=== PATIENT | female | born 1995 | race Caucasian/White ===

== ENCOUNTER 2016-06-06 20:49 | Emergency (ER) | payer BC ==
[2016-06-06 21:13] VITALS: BP 128/67; PULSE 90; RESP 18; TEMP 98.9
--- NOTE | 2016-06-06 21:47 | ED ---
General Adult HPI - General Chief complaint: Extremity Injury, Lower Stated complaint: Ankle Pain Time Seen by Provider: 06/06/16 21:30 Source: patient, RN notes reviewed Mode of arrival: wheelchair Limitations: no limitations - History of Present Illness Initial comments: This is a 20-year-old female presents with right ankle and right foot pain after rolling her ankle today. Patient states this happened around 1:30 PM. Patient states the ankle everted while she was walking. Patient has been walking on it all day but complains that the pain is getting worse. Patient denies any numbness/weakness or tingling. Patient has noticed some mild swelling to the lateral aspect of the right foot. Patient denies any chance of being . Patient denies any recent fever, chills, shortness breath, chest pain, abdominal pain, nausea/vomiting/diarrhea, back pain, hematuria, headache, or visual changes, or any other complaints. - Related Data Home Medications Medication Instructions Recorded Confirmed No Known Home Medications [No 06/06/16 06/06/16 Known Home Medications] Allergies Allergy/AdvReac Type Severity Reaction Status Date / Time No Known Allergies Allergy Verified 06/06/16 21:34 Review of Systems ROS Statement: Those systems with pertinent positive or pertinent negative responses have been documented in the HPI. ROS Other: All systems not noted in ROS Statement are negative. Past Medical History Past Medical History: No Reported History Additional Past Medical History / Comment(s): hypoglycemic History of Any Multi-Drug Resistant Organisms: None Reported Past Surgical History: No Surgical Hx Reported Past Anesthesia/Blood Transfusion Reactions: No Reported Reaction Past Psychological History: No Psychological Hx Reported Smoking Status: Never smoker Past Alcohol Use History: None Reported Past Drug Use History: None Reported - Past Family History Brother(s) Family Medical History: Diabetes Mellitus General Exam - General Exam Comments Initial Comments: General: The patient is awake and alert, in no distress, and does not appear acutely ill. Neck: The neck is supple, there is no tenderness or JVD. Cardiovascular: There is a regular rate and rhythm. No murmur, rub or gallop is appreciated. Respiratory: Lungs are clear to auscultation, respirations are non-labored, breath sounds are equal. No wheezes, stridor, rales, or rhonchi. Musculoskeletal: There is tenderness to palpation over the lateral malleolus and to the lateral aspect of the right foot. There is no tenderness to palpation over the medial malleolus. There is mild swelling to the lateral aspect of the right foot but no ecchymosis or erythema. Full range of motion, strength 5/5 and Sensation intact. Posterior tibial pulses 2+ bilaterally. Capillary refill is normal at less than 2 seconds. Neurological: A&O x 3. CN II-XII intact, There are no obvious motor or sensory deficits. Coordination appears grossly intact. Speech is normal. Skin: Skin is warm and dry and no rashes or lesions are noted. Psychiatric: Normal mood and affect. Limitations: no limitations Course Vital Signs 06/06/16 21:09 Temperature 98.9 F Pulse Rate 90 Respiratory 18 Rate Blood Pressure 128/67 O2 Sat by Pulse 99 Oximetry Medical Decision Making - Medical Decision Making This is a 20-year-old female presents with right-sided ankle and foot pain. On physical exam There is tenderness to palpation over the lateral malleolus and to the lateral aspect of the right foot. There is no tenderness to palpation over the medial malleolus. There is mild swelling to the lateral aspect of the right foot but no ecchymosis or erythema. Full range of motion, strength 5/5 and Sensation intact. Posterior tibial pulses 2+ bilaterally. Capillary refill is normal at less than 2 seconds. X-rays of the right foot and right ankle were done and reviewed showing: X-ray right foot: There is no acute fracture or dislocation. X-ray right ankle: There is no acute fracture or dislocation seen. Soft tissue swelling and effusion. If clinical symptoms persist a follow-up in 1 week's time would be beneficial. Read by Dr. Vazquez. I discussed results with patient. Discussed the patient will receive a prescription for an Aircast and crutches in the [facility] today. I discussed rest, ice, elevate and use Harpreet wrap for compression. Discussed weightbearing as tolerated. Discussed range of motion exercises with the right ankle. Discussed If symptoms do not improve in the next 7 days repeat x-rays may be needed to rule out occult fracture. Discussed return parameters. Discussed [id number] Tylenol or Motrin as seen for any pain. Discussed that patient should follow up with PCP in one to 2 days or return to the [facility] for any worsening symptoms or for any further concerns. Patient was receptive to this plan and patient will be discharged home. Disposition Clinical Impression: Right ankle sprain Disposition: HOME SELF-CARE Condition: Good Instructions: Ankle Sprain (ED) Additional Instructions: Distress, ice, elevate and use Harpreet wrap for compression. Please use Aircast for support while up and walking. If symptoms do not improve in the next 7 days repeat x-rays may be needed to rule out occult fracture. Please use over-the- counter Tylenol or Motrin as needed for any pain. Please follow-up with family doctor in the next 2 days of symptoms have not improved. Please return to emergency room if the symptoms increase or worsen or for any other concerns. Referrals: Dayne Mora DO [Primary Care Provider] - 1-2 days Time of Disposition: 22:27
--- NOTE | 2016-06-06 22:05 | XR ---
EXAMINATION TYPE: XR foot complete RT DATE OF EXAM: 06/06/2016 9:51 PM CLINICAL HISTORY: pain generalized right foot and ankle pain after twisting injury. TECHNIQUE: Frontal, lateral and oblique images of the right foot are obtained. COMPARISON: None. FINDINGS: There is no acute fracture/dislocation evident. The joint spaces appear within normal schaeffer its. The overlying soft tissue appears unremarkable. IMPRESSION: There is no acute fracture or dislocation. ICD 10 NO FRACTURE, INITIAL EVALUATION
--- NOTE | 2016-06-06 22:08 | XR ---
EXAMINATION TYPE: XR ankle complete RT DATE OF EXAM: 06/06/2016 9:51 PM COMPARISON: NONE HISTORY: Pain generalized right foot and right ankle pain after twisting injury. TECHNIQUE: Frontal, lateral and oblique images of the right ankle are obtained. COMPARISON: None. FINDINGS: Small linear lucency in the distal metaphysis of right fibula in the medial aspect in the AP view is most likely positioning artifact. There is no acute fracture/dislocation evident. The joint spaces appear within normal limits. Mild s oft tissue swelling is noted around the right ankle. Minor effusion is suggested. IMPRESSION: There is no acute fracture or dislocation seen. Soft tissue swelling and effusion. If clinical symptoms persist a follow-up in one week's time would be beneficial.
== END 2016-06-06 22:32 | disposition home or self-care (01) ==
LOC: EC 20:49
DX: S93.401A Sprain of unspecified ligament of right ankle, initial encounter (principal); X50.1XXA Overexertion from prolonged static or awkward postures, initial encounter
CPT/HCPCS: 99284

== ENCOUNTER 2017-06-29 20:07 | Emergency (ER) | payer BC ==
[2017-06-29 20:16] VITALS: RESP 18
[2017-06-29] MEDS ORDERED: ACETAMINOPHEN TAB 325 MG TAB PO STA (20:27)
[2017-06-29 20:51] LABS: Appearance,Urine Clear (Clear); Bilirubin,Urine Negative (Negative); Blood,Urine Negative (Negative); Color,Urine Yellow; Glucose,Urine (UA) Negative (Negative); Ketones,Urine Negative (Negative); Leukocyte Esterase,Urine Negative (Negative); Nitrite,Urine Negative (Negative); Protein,Urine Negative (Negative); Specific Gravity,Urine 1.014 (1.001-1.035); Urobilinogen,Urine <2.0 mg/dL (<2.0)
--- NOTE | 2017-06-29 20:57 | ED ---
Chest Pain HPI - General Chief Complaint: Chest Pain Stated Complaint: chest pressure/abdominal pain Time Seen by Provider: 06/29/17 20:19 Source: patient Mode of arrival: ambulatory Limitations: no limitations - History of Present Illness Initial Comments: Patient presents with mild "pressure" in her chest that occurs intermittently over the past 1 month. States symptoms occur when she was arguing with the father of her daughter. States symptoms resolved by taking a warm bath. Patient states she thinks they're related to anxiety. Patient denies any cardiac history. Denies any family history of early cardiac disease. Denies high blood pressure, high cholesterol, tobacco use, history of blood clots, diabetes. Patient also notes she's had mild right-sided lower abdominal cramping for the past one hour, states it feels like menstrual cramps. Patient denies vaginal bleeding or discharge. Last menstrual period 20 days ago. Patient denies urinary symptoms. Patient denies diarrhea or constipation, nausea, vomiting, fevers, chills, changes in appetite. MD Complaint: chest pain - Related Data Home Medications Medication Instructions Recorded Confirmed Clindamycin HCl [Cleocin] 150 mg PO TID 06/29/17 06/29/17 Fluticasone Nasal [place] [Flonase 1 spray EA NOSTRIL DAILY 06/29/17 06/29/17 Nasal [place]] Allergies Allergy/AdvReac Type Severity Reaction Status Date / Time No Known Allergies Allergy Verified 06/29/17 20:23 Review of Systems ROS Statement: Those systems with pertinent positive or pertinent negative responses have been documented in the HPI. ROS Other: All systems not noted in ROS Statement are negative. Constitutional: Denies: fever, chills, weakness Eyes: Denies: vision change ENT: Denies: ear pain, throat pain Respiratory: Denies: cough, dyspnea Cardiovascular: Reports: chest pain. Denies: palpitations, dyspnea on exertion , syncope Endocrine: Denies: fatigue Gastrointestinal: Reports: abdominal pain. Denies: nausea, vomiting, diarrhea, constipation, hematemesis, melena, hematochezia Genitourinary: Denies: urgency, dysuria, frequency, hematuria, discharge, abnormal menses Musculoskeletal: Denies: back pain, joint swelling Skin: Denies: rash, lesions, change in color Neurological: Denies: headache Psychiatric: Reports: anxiety Past Medical History Past Medical History: No Reported History Additional Past Medical History / Comment(s): hypoglycemic, History of Any Multi-Drug Resistant Organisms: None Reported Past Surgical History: No Surgical Hx Reported Additional Past Surgical History / Comment(s): LEAP procedure 2015 Past Anesthesia/Blood Transfusion Reactions: No Reported Reaction Past Psychological History: Anxiety, Depression Smoking Status: Never smoker Past Alcohol Use History: Daily Past Drug Use History: None Reported - Past Family History Brother(s) Family Medical History: Diabetes Mellitus General Exam - General Exam Comments Initial Comments: Patient sitting in bed. No acute distress. Conversing normally. Calm, pleasant. Smiling. Well appearing. Limitations: no limitations General appearance: alert, in no apparent distress Head exam: Present: atraumatic, normocephalic Eye exam: Present: normal appearance, PERRL, EOMI ENT exam: Present: normal exam, mucous membranes moist Neck exam: Present: normal inspection, full ROM. Absent: tenderness, meningismus Respiratory exam: Present: normal lung sounds bilaterally. Absent: respiratory distress, wheezes, rales, rhonchi, stridor, chest wall tenderness, accessory muscle use Cardiovascular Exam: Present: regular rate, normal rhythm GI/Abdominal exam: Present: soft, normal bowel sounds, other (Abdomen soft nontender.). Absent: distended, tenderness, guarding, rebound, rigid, hernia Extremities exam: Present: normal inspection Neurological exam: Present: alert, oriented X3 Psychiatric exam: Present: normal affect, normal mood Skin exam: Present: warm, dry, intact, normal color. Absent: rash Course Vital Signs 06/29/17 06/29/17 20:11 20:33 Temperature 98.6 F Pulse Rate 94 Pulse Rate [ 75 Pulse Oximetery ] Respiratory 18 Rate Blood Pressure 133/77 O2 Sat by Pulse 99 Oximetry Chest Pain [facility] EKG normal sinus rhythm, heart rate 86, no ST or T-wave changes appreciated. Patient states symptoms almost completely resolved spontaneously at time of initial evaluation. Discuss workup of her abdominal pain has been ongoing for 1 hour, very mild. Patient agrees UA and test. Agrees with no imaging or blood work at this time. Tylenol given for pain. Frenzy test negative, UA negative for infection. Chest x-ray normal. Patient reevaluated, sitting up in bed smiling. I [place]. States all symptoms resolved at this time. Texting on her phone. Well-appearing. Patient agrees to follow primary care physician one to 2 days. Return to ER for new or worsening symptoms. Patient is very happy with plan of care. [place] comfortable going home at this time. All questions answered - Wells Criteria Clinical Symptoms of DVT: (0) No No Alternative Diagnosis: (0) No Immobilization of Surgery in Previous 4 Weeks: (0) No Previous DVT/PE: (0) No Hemoptysis: (0) No Malignancy: (0) No - PERC Rule Heart Rate < 100: (0) No g: (0) No No Prior History pf DVT/PE: (0) No No Recent Trauma or Surgery: (0) No Hemoptysis: (0) No No Exogenous Estrogen: (0) No No Clinical Signs Suggesting DVT: (0) No - ANT Score Age > 65: (0) No 3 or more CAD Risk Factors: (0) No Known CAD with more than 50% Stenosis: (0) No Aspirin use within the Past 7 Days: (0) No Elevated Cardiac Markers: (0) No ST Deviation Greater than 0.5mm: (0) No Disposition Clinical Impression: Chest pain, Pelvic pain Disposition: HOME SELF-CARE Condition: Good Instructions: Chest Pain (ED), Abdominal Pain (ED) Additional Instructions: Follow-up they're primary care physician in 2 days for reevaluation. Return to ER for new or worsening symptoms. Referrals: Dayne Mora DO [Primary Care Provider] - 1-2 days
--- NOTE | 2017-06-29 21:14 | XR ---
EXAMINATION TYPE: XR chest 2V DATE OF EXAM: 06/29/2017 COMPARISON: 05/31/2006 INDICATION: Pain intermittent chest pressure TECHNIQUE: Frontal and lateral views of the chest are obtained. FINDINGS: The heart size is normal. The pulmonary vasculature is normal. The lungs are clear. IMPRESSION: 1. No acute pulmonary process.
[2017-06-29 21:29] VITALS: BP 122/73; PULSE 88; TEMP 98.4
== END 2017-06-29 21:30 | disposition home or self-care (01) ==
LOC: EC 20:07
DX: R07.9 Chest pain, unspecified (principal); R10.2 Pelvic and perineal pain; Z79.51 Long term (current) use of inhaled steroids
CPT/HCPCS: 71046; 81003; 81025; 93005; 99285

== ENCOUNTER 2017-08-24 16:47 | Inpatient (IN) | payer BC ==
[2017-08-24 17:14] LABS: Appearance,Urine Cloudy (Clear); Bilirubin,Urine 1+ (Negative); Blood,Urine Trace (Negative); Color,Urine Yellow; Glucose,Urine (UA) Negative (Negative); Hyaline Casts,Urine 1 /lpf (0-2); Ketones,Urine 4+ (Negative); Leukocyte Esterase,Urine Negative (Negative); Mucus,Urine Many /hpf; Nitrite,Urine Negative (Negative); PH, Urine 5.5 (5.0-8.0); Protein,Urine Trace (Negative); RBC,Urine 2 /hpf (0-5); Specific Gravity,Urine 1.022 (1.001-1.035); Squamous Epithelial Cell,Urine 7 /hpf (0-4); WBC,Urine 1 /hpf (0-5)
[2017-08-24] MEDS ORDERED: SODIUM CHLORIDE 0.9% 1,000 ML IV STA (17:20)
[2017-08-24] MEDS ORDERED: SODIUM CHLORIDE 0.9% 500 ML IV STA (17:20)
[2017-08-24] MEDS ORDERED: SODIUM CHLORIDE 0.9% 1,000 ML IV ONE (17:25)
[2017-08-24] MEDS ORDERED: ONDANSETRON 4 MG/2 ML VIAL IVP STA (17:33)
[2017-08-24] MEDS ORDERED: ACETAMINOPHEN TAB 325 MG TAB PO STA (17:33)
--- NOTE | 2017-08-24 17:34 | ED ---
Nausea/Vomiting/Diarrhea HPI - General Chief complaint: Nausea/Vomiting/Diarrhea Stated complaint: diarrhea Time Seen by Provider: 08/24/17 17:20 Source: patient, RN notes reviewed Mode of arrival: ambulatory Limitations: no limitations - History of Present Illness Initial comments: 21-year-old female presents emergency Department chief complaint of nausea, diarrhea. Patient states diarrhea has been present consistently last one week. She states she finished amoxicillin 1 week ago and also She was on clindamycin. Patient states that she's having abdominal cramping, bloating. Patient states that she is concerned about C. diff. Patient was seen at [facility] and sent here for further evaluation. 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 Patient denies any fever, chills. She's had no prior bowel infections. She has tried Imodium with no relief. - Related Data Home Medications Medication Instructions Recorded Confirmed Clindamycin HCl [Cleocin] 150 mg PO TID 06/29/17 06/29/17 Fluticasone Nasal [place] [Flonase 1 spray EA NOSTRIL DAILY 06/29/17 06/29/17 Nasal [place]] Allergies Allergy/AdvReac Type Severity Reaction Status Date / Time No Known Allergies Allergy Verified 08/24/17 17:04 Review of Systems ROS Statement: Those systems with pertinent positive or pertinent negative responses have been documented in the HPI. ROS Other: All systems not noted in ROS Statement are negative. Past Medical History Past Medical History: No Reported History Additional Past Medical History / Comment(s): hypoglycemic History of Any Multi-Drug Resistant Organisms: None Reported Past Surgical History: No Surgical Hx Reported Additional Past Surgical History / Comment(s): LEAP procedure 2015 Past Anesthesia/Blood Transfusion Reactions: No Reported Reaction Past Psychological History: Anxiety, Depression Smoking Status: Never smoker Past Alcohol Use History: None Reported Past Drug Use History: None Reported - Past Family History Brother(s) Family Medical History: Diabetes Mellitus General Exam Limitations: no limitations General appearance: alert, in no apparent distress Head exam: Present: atraumatic, normocephalic, normal inspection Respiratory exam: Present: normal lung sounds bilaterally. Absent: respiratory distress, wheezes, rales, rhonchi, stridor Cardiovascular Exam: Present: normal rhythm, tachycardia, normal heart sounds. Absent: systolic murmur, diastolic murmur, rubs, gallop, clicks GI/Abdominal exam: Present: soft, tenderness (Mild upper abdominal tenderness), normal bowel sounds. Absent: distended, guarding, rebound, rigid Back exam: Absent: CVA tenderness (R), CVA tenderness (L) Skin exam: Present: warm, dry, intact, normal color. Absent: rash Course Vital Signs 08/24/17 08/24/17 17:01 19:05 Temperature 100.3 F H 98.5 F Pulse Rate 114 H 82 Respiratory 18 16 Rate Blood Pressure 110/62 109/59 O2 Sat by Pulse 100 100 Oximetry - Reevaluation(s) Reevaluation #1: 08/24/17 18:50 Patient was updated on results and she'll be sent for Ultram at this time acute hepatitis panel was added. Medical Decision Making - Medical Decision Making 21-year-old female presents for diarrhea or abdominal discomfort. Patient lab work shows elevated LFTs. Patient has been on recent antibiotics. Concern for C. diff versus hepatitis. Patient is dehydrated. She has not felt well at this time. Patient be admitted for IV hydration, Flagyl and sent out for hepatitis panel. - Lab Data Result diagrams: 08/24/17 17:47 08/24/17 17:47 Lab Results 08/24/17 08/24/17 08/24/17 Range/Units 17:05 17:05 17:47 WBC (3.8-10.6) k/uL RBC (3.80-5.40) m/uL Hgb (11.4-16.0) gm/dL Hct (34.0-46.0) % MCV (80.0-100.0) fL MCH (25.0-35.0) pg MCHC (31.0-37.0) g/dL RDW (11.5-15.5) % Plt Count (150-450) k/uL Neutrophils % % Lymphocytes % % Monocytes % % Eosinophils % % Basophils % % Neutrophils # (1.3-7.7) k/uL Lymphocytes # (1.0-4.8) k/uL Monocytes # (0-1.0) k/uL Eosinophils # (0-0.7) k/uL Basophils # (0-0.2) k/uL Sodium 138 (137-145) mmol/L Potassium 4.1 (3.5-5.1) mmol/L Chloride 103 (98-107) mmol/L Carbon Dioxide 22 (22-30) mmol/L Anion Gap 13 mmol/L BUN 7 (7-17) mg/dL Creatinine 0.60 (0.52-1.04) mg/dL Est GFR (CKD-EPI)AfAm >90 (>60 ml/min/1.73 sqM) Est GFR (CKD-EPI)NonAf >90 (>60 ml/min/1.73 sqM) Glucose 81 (74-99) mg/dL Plasma Lactic Acid Andriy (0.7-2.0) mmol/L Calcium 9.7 (8.4-10.2) mg/dL Total Bilirubin 1.9 H (0.2-1.3) mg/dL AST 150 H (14-36) U/L ALT 327 H (9-52) U/L Alkaline Phosphatase 134 H (38-126) U/L Total Protein 6.7 (6.3-8.2) g/dL Albumin 3.8 (3.5-5.0) g/dL Amylase 34 (30-110) U/L Lipase 14 L (23-300) U/L Urine Color Yellow Urine Appearance Cloudy H (Clear) Urine pH 5.5 (5.0-8.0) Ur Specific [place] 1.022 (1.001-1.035) Urine Protein Trace H (Negative) Urine Glucose (UA) Negative (Negative) Urine Ketones 4+ H (Negative) Urine Blood Trace H (Negative) Urine Nitrite Negative (Negative) Urine Bilirubin 1+ H (Negative) Urine Urobilinogen 2.0 (<2.0) mg/dL Ur Leukocyte Esterase Negative (Negative) Urine RBC 2 (0-5) /hpf Urine WBC 1 (0-5) /hpf Ur Squamous Epith Cells 7 H (0-4) /hpf Hyaline Casts 1 (0-2) /lpf Urine Mucus Many H (None) /hpf Urine HCG, Qual Not Detected (Not Detectd) Hepatitis A IgM Ab 08/24/17 08/24/17 08/24/17 Range/Units 17:47 17:47 19:38 WBC 12.0 H (3.8-10.6) k/uL RBC 5.12 (3.80-5.40) m/uL Hgb 15.4 (11.4-16.0) gm/dL Hct 46.8 H (34.0-46.0) % MCV 91.4 (80.0-100.0) fL MCH 30.2 (25.0-35.0) pg MCHC 33.0 (31.0-37.0) g/dL RDW 12.5 (11.5-15.5) % Plt Count 313 (150-450) k/uL Neutrophils % 79 % Lymphocytes % 12 % Monocytes % 7 % Eosinophils % 1 % Basophils % 0 % Neutrophils # 9.5 H (1.3-7.7) k/uL Lymphocytes # 1.4 (1.0-4.8) k/uL Monocytes # 0.8 (0-1.0) k/uL Eosinophils # 0.1 (0-0.7) k/uL Basophils # 0.0 (0-0.2) k/uL Sodium (137-145) mmol/L Potassium (3.5-5.1) mmol/L Chloride (98-107) mmol/L Carbon Dioxide (22-30) mmol/L Anion Gap mmol/L BUN (7-17) mg/dL Creatinine (0.52-1.04) mg/dL Est GFR (CKD-EPI)AfAm (>60 ml/min/1.73 sqM) Est GFR (CKD-EPI)NonAf (>60 ml/min/1.73 sqM) Glucose (74-99) mg/dL Plasma Lactic Acid Andriy 1.1 (0.7-2.0) mmol/L Calcium (8.4-10.2) mg/dL Total Bilirubin (0.2-1.3) mg/dL AST (14-36) U/L ALT (9-52) U/L Alkaline Phosphatase (38-126) U/L Total Protein (6.3-8.2) g/dL Albumin (3.5-5.0) g/dL Amylase (30-110) U/L Lipase (23-300) U/L Urine Color Urine Appearance (Clear) Urine pH (5.0-8.0) Ur Specific [place] (1.001-1.035) Urine Protein (Negative) Urine Glucose (UA) (Negative) Urine Ketones (Negative) Urine Blood (Negative) Urine Nitrite (Negative) Urine Bilirubin (Negative) Urine Urobilinogen (<2.0) mg/dL Ur Leukocyte Esterase (Negative) Urine RBC (0-5) /hpf Urine WBC (0-5) /hpf Ur Squamous Epith Cells (0-4) /hpf Hyaline Casts (0-2) /lpf Urine Mucus (None) /hpf Urine HCG, Qual (Not Detectd) Hepatitis A IgM Ab NEGATIVE Disposition Clinical Impression: Dehydration, Diarrhea, Hepatitis Disposition: ADMITTED IP TO THIS HOSP Condition: Stable Referrals: Dayne Mora DO [Primary Care Provider] - 1-2 days
[2017-08-24 18:05] LABS: Basophils % (A) 0 %; Eosinophils # (A) 0.1 k/uL (0-0.7); Eosinophils % (A) 1 %; HCT 46.8 % (34.0-46.0); HGB 15.4 gm/dL (11.4-16.0); Lymphocytes # (A) 1.4 k/uL (1.0-4.8); Lymphocytes % (A) 12 %; MCH 30.2 pg (25.0-35.0); MCV 91.4 fL (80.0-100.0); Mean Platelet Volume 7.7; Monocytes # (A) 0.8 k/uL (0-1.0); Monocytes % (A) 7 %; Neutrophils # (A) 9.5 k/uL (1.3-7.7); Neutrophils % (A) 79 %; Platelet Count 313 k/uL (150-450); RBC 5.12 m/uL (3.80-5.40); RDW 12.5 % (11.5-15.5)
[2017-08-24 18:17] LABS: ALT 327 U/L (9-52); AST 150 U/L (14-36); Albumin 3.8 g/dL (3.5-5.0); Alkaline Phosphatase 134 U/L (38-126); Amylase 34 U/L (30-110); Anion Gap 13 mmol/L; Blood Urea Nitrogen 7 mg/dL (7-17); Calcium 9.7 mg/dL (8.4-10.2); Carbon Dioxide 22 mmol/L (22-30); Chloride 103 mmol/L (98-107); Glucose 81 mg/dL (74-99); Lipase 14 U/L (23-300); Potassium 4.1 mmol/L (3.5-5.1); Sodium 138 mmol/L (137-145); Total Bilirubin 1.9 mg/dL (0.2-1.3); Total Protein 6.7 g/dL (6.3-8.2)
--- NOTE | 2017-08-24 19:59 | US ---
EXAMINATION TYPE: US abdomen limited DATE OF EXAM: 08/24/2017 COMPARISON: NONE CLINICAL HISTORY: Pain. Abdominal pain, nausea, diarrhea x2 weeks. Elevated liver enzymes EXAM MEASUREMENTS: Liver Length: 13.6 cm Gallbladder Wall: 0.2 cm CBD: 0.5 cm Right Kidney: 11.0 x 4.2 x 5.1 cm Pancreas: Tail obscured by overlying bowel gas, visualized portions show no abnormality Liver: Portal triads appear bright Gallbladder: No stones or sludge visualized Evidence for sonographic Lorenz's sign: No CBD: wnl Right Kidney: No hydronephrosis or masses seen IMPRESSION: 1. No acute ultrasound abnormality.
[2017-08-24 20:23] LABS: Hepatitis A AB IgM Index 0.04; Hepatitis A Antibody IgM NEGATIVE
[2017-08-24] MEDS ORDERED: metroNIDAZOLE 500 MG TAB PO STA (20:24)
[2017-08-24] MEDS ORDERED: KETOROLAC 30 MG/ML 1 ML VIAL IVP PRN (20:28)
[2017-08-24] MEDS: SODIUM CHLORIDE 0.9% 1,000 ML IV SCH (20:56)
[2017-08-25 02:51] VITALS: BMI 25.3
[2017-08-25] MEDS: SODIUM CHLORIDE 0.9% 1,000 ML IV SCH ×4 (05:37→22:03)
[2017-08-25] MEDS: metroNIDAZOLE 500 MG TAB PO SCH ×3 (08:11→22:03)
[2017-08-25] MEDS: IBUPROFEN 400 MG TAB PO PRN (08:16)
--- NOTE | 2017-08-25 11:28 | P.HPIM ---
History of Present Illness Patient is a very pleasant 21-year-old female came in with compensative diarrhea has been going on for about 1 week patient was on antibiotics initially for ear infection and then for sore throat him up patient was comparing of mine abdominal pain or discomfort. Patient denied any fever chills patient denied any nausea vomiting diarrhea. His to be improving today. Patient is found to have C. diff colitis and patient was started on oral metronidazole. Patient denied any blood in the stools hematemesis . Review of Systems REVIEW OF SYSTEMS: CONSTITUTIONAL: No fever, no malaise, no fatigue. HEENT: No recent visual problems or hearing problems. Denied any sore throat. CARDIOVASCULAR: No chest pain, orthopnea, PND, no palpitations, no syncope. PULMONARY: No shortness of breath, no cough, no hemoptysis. GASTROINTESTINAL: Mentioned in HPI leeding or petechiae. GENITOURINARY: Denies any burning micturition, frequency, or urgency. MUSCULOSKELETAL/RHEUMATOLOGICAL: Denies any joint pain, swelling, or any muscle pain. ENDOCRINE: Denies any polyuria or polydipsia. The rest of the 14-point review of systems is negative. Past Medical History Past Medical History: No Reported History Additional Past Medical History / Comment(s): hypoglycemic History of Any Multi-Drug Resistant Organisms: None Reported Past Surgical History: No Surgical Hx Reported Additional Past Surgical History / Comment(s): LEAP procedure 2015 Past Anesthesia/Blood Transfusion Reactions: No Reported Reaction Past Psychological History: Anxiety, Depression Smoking Status: Never smoker Past Alcohol Use History: None Reported Past Drug Use History: None Reported - Past Family History Brother(s) Family Medical History: Diabetes Mellitus Medications and Allergies Home Medications Medication Instructions Recorded Confirmed Type Loperamide HCl [Imodium A-D] 2 mg PO Q4H PRN 08/25/17 08/25/17 History Allergies Allergy/AdvReac Type Severity Reaction Status Date / Time No Known Allergies Allergy Verified 08/25/17 08:26 Physical Exam Vitals: Vital Signs Temp Pulse Pulse Resp BP BP Pulse Ox 08/25/17 07:00 98.9 F 81 16 108/56 95 08/24/17 23:55 16 08/24/17 22:53 96.4 F L 102 H 16 125/56 98 08/24/17 21:50 97.9 F 100 18 107/58 98 08/24/17 20:51 100 18 121/60 100 08/24/17 19:05 98.5 F 82 16 109/59 100 08/24/17 17:01 100.3 F H 114 H 18 110/62 100 Intake and Output 08/24/17 08/25/17 08/25/17 22:59 06:59 14:59 Intake Total 920 Balance 920 Intake: Intake, IV Titration 800 Amount Sodium Chloride 0.9% 1, 800 000 ml @ 100 mls/hr IV . Q10H RAMSEY Rx#:[id number] Oral 120 Other: # Voids 2 # Bowel Movements 2 Weight 71.214 kg PHYSICAL EXAMINATION: GENERAL: The patient is alert and oriented x3, not in any acute distress. Well developed, well nourished. HEENT: Pupils are round and equally reacting to light. EOMI. No scleral icterus. No conjunctival pallor. Normocephalic, atraumatic. No pharyngeal erythema. No thyromegaly. CARDIOVASCULAR: S1 and S2 present. No murmurs, rubs, or gallops. PULMONARY: Chest is clear to auscultation, no wheezing or crackles. ABDOMEN: Soft, nontender, nondistended, normoactive bowel sounds. No palpable organomegaly. MUSCULOSKELETAL: No joint swelling or deformity. EXTREMITIES: No cyanosis, clubbing, or pedal edema. NEUROLOGICAL: Gross neurological examination did not reveal any focal deficits. SKIN: No rashes. Results CBC & Chem 7: 08/24/17 17:47 08/24/17 17:47 Labs: Abnormal Lab Results - Last 24 Hours (Table) 08/24/17 08/24/17 08/24/17 Range/Units 17:05 17:20 17:47 WBC (3.8-10.6) k/uL Hct (34.0-46.0) % Neutrophils # (1.3-7.7) k/uL Total Bilirubin 1.9 H (0.2-1.3) mg/dL AST 150 H (14-36) U/L ALT 327 H (9-52) U/L Alkaline Phosphatase 134 H (38-126) U/L Lipase 14 L (23-300) U/L Urine Appearance Cloudy H (Clear) Urine Protein Trace H (Negative) Urine Ketones 4+ H (Negative) Urine Blood Trace H (Negative) Urine Bilirubin 1+ H (Negative) Ur Squamous Epith Cells 7 H (0-4) /hpf Urine Mucus Many H (None) /hpf C. difficile (EIA) Intrp Positive A (Negative) 08/24/17 Range/Units 17:47 WBC 12.0 H (3.8-10.6) k/uL Hct 46.8 H (34.0-46.0) % Neutrophils # 9.5 H (1.3-7.7) k/uL Total Bilirubin (0.2-1.3) mg/dL AST (14-36) U/L ALT (9-52) U/L Alkaline Phosphatase (38-126) U/L Lipase (23-300) U/L Urine Appearance (Clear) Urine Protein (Negative) Urine Ketones (Negative) Urine Blood (Negative) Urine Bilirubin (Negative) Ur Squamous Epith Cells (0-4) /hpf Urine Mucus (None) /hpf C. difficile (EIA) Intrp (Negative) Thrombosis Risk Factor Assmnt - Choose All That Apply Any of the Below Risk Factors Present?: Yes Each Factor Represents 1 point: Obesity (BMI >25) Other Risk Factors: No Thrombosis Risk Factor Assessment Total Risk Factor Score: 1 Thrombosis Risk Factor Assessment Level: Low Risk Assessment and Plan Plan: 1 C. diff colitis: Symptoms appear to be improving patient will be continue on oral metronidazole. -Leukocytosis secondary to C. diff colitis patient is feeling better now. -Recent strep sore throat completed antibiotic therapy.
[2017-08-25 12:00] LABS: Hepatitis B Core IgM Non-Reactive (Non-Reactive)
[2017-08-25 21:59] VITALS: TEMP 98.8
[2017-08-26] MEDS: SODIUM CHLORIDE 0.9% 1,000 ML IV SCH ×2 (05:51→12:39)
[2017-08-26 08:01] LABS: HCT 37.3 % (34.0-46.0); MCH 30.3 pg (25.0-35.0); MCHC 32.6 g/dL (31.0-37.0); Mean Platelet Volume 7.7; Platelet Count 253 k/uL (150-450); RBC 4.01 m/uL (3.80-5.40); RDW 12.6 % (11.5-15.5); WBC 5.3 k/uL (3.8-10.6)
[2017-08-26 08:02] LABS: Anion Gap 8 mmol/L; Blood Urea Nitrogen 4 mg/dL (7-17); Calcium 7.8 mg/dL (8.4-10.2); Carbon Dioxide 23 mmol/L (22-30); Chloride 110 mmol/L (98-107); Glucose 86 mg/dL (74-99); HGB 12.2 gm/dL (11.4-16.0); Potassium 3.6 mmol/L (3.5-5.1); Sodium 141 mmol/L (137-145)
[2017-08-26] MEDS: metroNIDAZOLE 500 MG TAB PO SCH (08:50)
[2017-08-26 08:57] VITALS: BP 109/57; PULSE 69; RESP 18
[2017-08-26] MEDS: IBUPROFEN 400 MG TAB PO PRN (10:09)
--- NOTE | 2017-08-26 10:28 | P.DS ---
Providers Date of admission: 08/24/17 21:17 Attending physician: Joie Szymanski MD Primary care physician: Dayne Mora [facility] Course: Patient was admitted for C. diff colitis. Patient diarrhea improved but still has a few episodes of diarrhea today morning because of which I am change metronidazole to oral vancomycin patient will be discharged on oral vancomycin as patient really wanted to go home. Patient will be provided instructions for C. diff colitis and will be discharged home today. PHYSICAL EXAMINATION: GENERAL: The patient is alert and oriented x3, not in any acute distress. Well developed, well nourished. HEENT: Pupils are round and equally reacting to light. EOMI. No scleral icterus. No conjunctival pallor. Normocephalic, atraumatic. No pharyngeal erythema. No thyromegaly. CARDIOVASCULAR: S1 and S2 present. No murmurs, rubs, or gallops. PULMONARY: Chest is clear to auscultation, no wheezing or crackles. ABDOMEN: Soft, nontender, nondistended, normoactive bowel sounds. No palpable organomegaly. MUSCULOSKELETAL: No joint swelling or deformity. EXTREMITIES: No cyanosis, clubbing, or pedal edema. NEUROLOGICAL: Gross neurological examination did not reveal any focal deficits. SKIN: No rashes. Patient Condition at Discharge: Stable Plan - Discharge Summary Discharge Rx Participant: Yes New Discharge Prescriptions: New Vancomycin HCl [Vancomycin HCl Oral Soln] 2.5 mg PO QID #40 dose Discontinued Loperamide HCl [Imodium A-D] 2 mg PO Q4H PRN PRN Reason: Loose Stool Discharge Medication List Vancomycin HCl [Vancomycin HCl Oral Soln] 2.5 mg PO QID #40 dose 08/26/17 [Rx] Follow up Appointment(s)/Referral(s): Dayne Mora DO [Primary Care Provider] - 3 Days Activity/Diet/Wound Care/Special Instructions: pt wants Med RX Discharge Disposition: HOME SELF-CARE
== END 2017-08-26 13:30 | disposition home or self-care (01) | DRG 373 ==
LOC: EC 16:47 → 5MS5E 21:17
PROVIDERS: ADMIT Internal Medicine; ATTEND Internal Medicine
DX: A04.72 Enterocolitis due to Clostridium difficile, not specified as recurrent (principal); E86.0 Dehydration; F41.9 Anxiety disorder, unspecified; F32.9 Major depressive disorder, single episode, unspecified; Z79.899 Other long term (current) drug therapy; Z83.3 Family history of diabetes mellitus
CPT/HCPCS: 36415; 76705; 80048; 80053; 80074; 81001; 81025; 82150; 83605; 83690; 85025; 85027; 87040; 87045; 87046; 87324; 96361; 96374; 99285

== ENCOUNTER → 2019-05-05 | Outpatient (CLI) | payer BC ==
[2019-05-05 10:50] LABS: Basophils # (A) 0.1 k/uL (0-0.2); Basophils % (A) 1 %; Eosinophils % (A) 1 %; HCT 44.5 % (34.0-46.0); HGB 14.3 gm/dL (11.4-16.0); Lymphocytes # (A) 1.1 k/uL (1.0-4.8); Lymphocytes % (A) 16 %; MCH 30.1 pg (25.0-35.0); MCHC 32.2 g/dL (31.0-37.0); MCV 93.7 fL (80.0-100.0); Mean Platelet Volume 8.6; Monocytes # (A) 0.2 k/uL (0-1.0); Monocytes % (A) 4 %; Neutrophils # (A) 5.4 k/uL (1.3-7.7); Neutrophils % (A) 78 %; Platelet Count 235 k/uL (150-450); RBC 4.75 m/uL (3.80-5.40); RDW 12.1 % (11.5-15.5); WBC 6.9 k/uL (3.8-10.6)
== END | disposition home or self-care (01) ==
LOC: LABPAT 09:46
PROVIDERS: ATTEND Obstetrics & Gynecology
DX: Z01.812 Encounter for preprocedural laboratory examination (principal)
CPT/HCPCS: 85025

== ENCOUNTER 2019-05-06 06:26 | Day surgery (SDC) | payer BC ==
[2019-05-05 08:55] VITALS: BMI 25.3
--- NOTE | 2019-05-05 12:39 | P.HPOB ---
History of Present Illness H&P Date: 05/05/19 Chief Complaint: missed , 8 weeks This patient is a pleasant 23-year-old 3 para 1 female who initially presented to me on May 03 for her first OB visit. Patient had an ultrasound done at the center approximately 2 weeks prior that showed cardiac activity. Patient's ultrasound my office unfortunately showed her to be 8 week demise. I discussed options with the patient including expectant management versus D&C. She is requesting D&C at this time. Review of Systems Genitourinary: Reports Menstruation: Reports amenorrhea Past Medical History Past Medical History: No Reported History Additional Past Medical History / Comment(s): Hx hypoglycemia, no current issues. Meniere's, difficulty hearing in left ear at times. History of Any Multi-Drug Resistant Organisms: C-DIFF Date of last positivie culture/infection: 08/24/17 MDRO Source:: stool Additional Past Surgical History / Comment(s): LEEP procedure., Her second was an elective . Past Anesthesia/Blood Transfusion Reactions: No Reported Reaction Past Psychological History: Anxiety, Depression Smoking Status: Former smoker Past Alcohol Use History: None Reported Additional Past Alcohol Use History / Comment(s): Quit smoking 2 yrs ago, smoked on and off since 15 yrs old. Past Drug Use History: None Reported - Past Family History Brother(s) Family Medical History: Diabetes Mellitus Medications and Allergies Home Medications Medication Instructions Recorded Confirmed Type Pnv No.95/Ferrous Fum/Folic AC 1 each PO DAILY 05/05/19 05/05/19 History [ Multivitamin Tablet] Allergies Allergy/AdvReac Type Severity Reaction Status Date / Time No Known Allergies Allergy Verified 05/05/19 08:43 Exam Intake and Output 05/04/19 05/05/19 05/05/19 22:59 06:59 14:59 Other: Weight 71.214 kg - OBG Physical Exam Abdomen: bowel sounds normal, no diffuse tenderness, no bruit present, no guarding noted, no hepatomegaly, no splenomegaly, no mass Vulva: both: normal Vagina: normal moisture, no discharge Cervix: no lesion, no discharge Uterus: enlarged (uterus is approximately 8 weeks size) Results transvaginal ultrasound in my office shows an 8 week size intrauterine with no cardiac activity. Patient's blood type is Rh+. Assessment and Plan Assessment: This is a pleasant 23-year-old 3 para 2 female estimated gestational age 8 weeks with a missed . Patient is requesting suction D&C for treatment at this time. Patient I discussed the surgery and risks including risks of infection, bleeding, possible uterine perforation. All the patient's questions are answered and written consent is obtained. (1) Missed Status: Acute Code(s): O02.1 - MISSED SNOMED Code(s): 99137746
[~2019-05-06 06:26] MED LIST: DEXAMETHASONE SOD PHOSPHATE 10 MG/ML 1 ML VIAL IV ONE; HYDROmorphone 0.5 MG/0.5 ML SYRINGE IVP PRN; LACTATED RINGERS 1,000 ML IV SCH; LIDOCAINE 1% 20 ML VIAL (10MG/ML) FOR IV START INTRADERMA PRN; MIDAZOLAM 2 MG/2 ML VIAL IV PRN; ONDANSETRON 4 MG/2 ML VIAL IVP ONE; Pre Op ABX Message 1 EACH MISC MISCELLANE ONE; SCOPOLAMINE 1.5MG/72HR PATCH TRANSDERM ONE
[2019-05-06 06:57] LABS: Glucose,Whole Blood 83 mg/dL (75-99)
[2019-05-06] MEDS ORDERED: MIDAZOLAM 2 MG/2 ML VIAL IVP ONE (07:09)
[2019-05-06] MEDS ORDERED: LIDOCAINE 1% INJ 10MG/ML (20 ML MDV) ONE (07:16)
[2019-05-06] MEDS ORDERED: KETOROLAC 30 MG/ML 1 ML VIAL ONE (07:16)
[2019-05-06] MEDS ORDERED: fentaNYL (PF) 50 MCG/ML 2 ML AMP ONE (07:16)
[2019-05-06] MEDS ORDERED: PROPOFOL 10 MG/ML 20 ML VIAL IV ONE (07:16)
--- NOTE | 2019-05-06 07:50 | P.OP ---
Date of Procedure: 05/06/19 Preoperative Diagnosis: Missed 8 weeks' Postoperative Diagnosis: Same Procedure(s) Performed: Suction D&C Anesthesia: MAC Surgeon: Hira Marte Estimated Blood Loss (ml): 75 Urine output (ml): 50 Pathology: other (Uterine contents) Condition: stable Disposition: PACU Indications for Procedure: Please see dictated H&P for intimate details of this patient's admission. Brief summary this pleasant 23-year-old 3 para 1 female with known 8 week missed who is requesting suction D&C for treatment. Patient understands this surgery and risks including risks of infection, bleeding, possible uterine perforation. All the patient's questions are answered and a written consent is obtained. Operative Findings: This patient had uterine contents consistent with missed Description of Procedure: This patient is taken to the operating room where she is laid in the supine position. She subsequently undergoes general mask anesthesia without incident. With an adequate level of anesthesia she's placed in the dorsal lithotomy position. She has a vaginal perineal prep and drape. Examination under anesthesia shows a mid position uterus approximately 8 weeks size. The bladder is drained this time for 50 mL of clear urine. I placed a weighted speculum posterior vagina. The anterior lip of the cervix is grabbed with an Allis clamp. I then gently dilate the cervix to allow a 9 curved suction curette easily uterine cavity. Suction is applied and a large amount of tissue is removed. Multiple passes are made until no further tissue was noted. A 4 quadrant sharp curettage is then done gently and no further tissue again is noted. Final pass of the suction curet is done bleeding is subsided. This done the procedure is ended. The Allis clamp and weighted speculum were removed. All counts are correct 3. There are no complications. Patient is awakened from anesthesia and taken to the recovery room in satisfactory condition.
[2019-05-06 07:51] VITALS: TEMP 97.3
[2019-05-06 08:44] VITALS: PULSE 67
[2019-05-06 08:52] VITALS: BP 104/73; RESP 16
== END 2019-05-06 09:12 | disposition home or self-care (01) ==
LOC: OR 06:26
PROVIDERS: ATTEND Obstetrics & Gynecology
DX: O02.1 Missed abortion (principal); O26.891 Other specified pregnancy related conditions, first trimester; H81.02 Meniere's disease, left ear; O99.341 Other mental disorders complicating pregnancy, first trimester; F41.9 Anxiety disorder, unspecified; F32.9 Major depressive disorder, single episode, unspecified; Z86.2 Personal history of diseases of the blood and blood-forming organs and certain disorders involving the immune mechanism; Z86.19 Personal history of other infectious and parasitic diseases; Z98.890 Other specified postprocedural states; Z87.891 Personal history of nicotine dependence; Z83.3 Family history of diabetes mellitus; Z3A.08 8 weeks gestation of pregnancy
CPT/HCPCS: 86900; 86901; 88305; 86850; 36415; 59820; J2250; J1100; J2405; J2001; J3010; J1885; J2704; J1170

== ENCOUNTER 2021-01-16 09:02 | Emergency (ER) | payer BC, OTHER ==
[2021-01-16 09:17] VITALS: RESP 18
[2021-01-16] MEDS ORDERED: LIDOCAINE 1% INJ 10MG/ML (20 ML MDV) SQ STA (09:39)
[2021-01-16] MEDS ORDERED: cefTRIAXone 1,000 MG VIAL (IM USE) IM STA (09:39)
[2021-01-16] MEDS ORDERED: SULFAMETH-TMP DS STARTER PACK 2 TAB BTL PO STA (09:40)
--- NOTE | 2021-01-16 10:32 | ED ---
General Adult HPI - General Chief complaint: Skin/Abscess/Foreign Body Stated complaint: possible spider bite Time Seen by Provider: 01/16/21 09:19 Source: patient Mode of arrival: ambulatory Limitations: no limitations - History of Present Illness Initial comments: 25 year old female presents to the emergency room for chief complaint of redness of the left thigh. Patient reports she thought she had an ingrown hair a couple days ago. States it started to get red and spread. She was seen at urgent care and started on Keflex twice daily for 7 days. She has taken about 24 hours of the antibiotics and states the redness has spread and she was concerned about this. Patient denies fevers. States it is painful. Patient denies any immunocompromising factors.Patient has no other complaints at this time including shortness of breath, chest pain, abdominal pain, nausea or vomiting, headache, or visual changes. - Related Data Home Medications Medication Instructions Recorded Confirmed Pnv No.95/Ferrous Fum/Folic AC 1 each PO DAILY 05/05/19 05/06/19 [ Multivitamin Tablet] Previous Rx's Medication Instructions Recorded Ibuprofen [Motrin] 600 mg PO Q6HR PRN #40 tab 05/06/19 Cephalexin [Keflex] 500 mg PO Q6HR 10 Days #40 cap 01/16/21 Sulfamethox-Tmp 800-160Mg [Bactrim 1 tab PO Q12HR #20 tab 01/16/21 DS 800-160 mg] Allergies Allergy/AdvReac Type Severity Reaction Status Date / Time No Known Allergies Allergy Verified 01/16/21 09:17 Review of Systems ROS Statement: Those systems with pertinent positive or pertinent negative responses have been documented in the HPI. ROS Other: All systems not noted in ROS Statement are negative. Past Medical History Past Medical History: No Reported History Additional Past Medical History / Comment(s): hypoglycemic History of Any Multi-Drug Resistant Organisms: C-DIFF Date of last positivie culture/infection: 08/24/17 MDRO Source:: stool Past Surgical History: No Surgical Hx Reported Additional Past Surgical History / Comment(s): LEAP procedure 2015, D&C 2019 Past Anesthesia/Blood Transfusion Reactions: No Reported Reaction Past Psychological History: Anxiety, Depression Smoking Status: Never smoker Past Alcohol Use History: Occasional Past Drug Use History: None Reported - Past Family History Brother(s) Family Medical History: Diabetes Mellitus General Exam Limitations: no limitations General appearance: alert, in no apparent distress Head exam: Present: atraumatic Eye exam: Present: normal appearance, PERRL, EOMI. Absent: scleral icterus, conjunctival injection ENT exam: Present: normal exam, mucous membranes moist Neck exam: Present: normal inspection, full ROM. Absent: tenderness Respiratory exam: Present: normal lung sounds bilaterally. Absent: respiratory distress, wheezes Cardiovascular Exam: Present: regular rate, normal rhythm, normal heart sounds Extremities exam: Present: other (Patient has a 10 cm x 10 cm area of cellulitic changes on the left anterior thigh. Patient previously had marked a 7 cm x 4 cm area from yesterday. There is also an abscess noted which was not drained yesterday.) Course Vital Signs 01/16/21 09:13 Temperature 98.5 F Pulse Rate 78 Respiratory 18 Rate Blood Pressure 126/86 O2 Sat by Pulse 99 Oximetry Procedures - Jasper Protocol (Time Out) Procedure Performed:: incision and drainage left thigh Performing Provider: Rudi Sam Nurse: Afua Silver Patient Identification (2 identifiers required): Verbal, Arm Band, Name, Birthdate Patient/Legal Inventory Transcriber has Confirmed: Identity, Site, Procedure, Consent Site: left thigh Site Marked: Yes Site Verified With Patient/Guardian: Yes - Incision & Drainage Consent Obtained: verbal consent Indication: abscess Site: lower extremity Size (cm): 3 Anesthetic Used: lidocaine 1% Amount (mLs): 2 I&D Cleaning Method: Chloroprep Sterile Field Used?: Yes Scalpel Used: #11 I&D Drainage Obtained: Pus, Blood Culture Obtained?: Yes Patient Tolerated Procedure: well, no complications Medical Decision Making - Medical Decision Making Patient does have cellulitis of the left thigh. However there is an abscess noted. This was incised and drained. It was cultured. She was given IM Rocephin. Patient was only prescribed Keflex twice daily for 7 days. We will changes to 4 times daily for 10 days week. Given Current abscess we will add Bactrim. She denies chance of . Case was discussed in depth with patient. If the redness is spreading significantly over the next 24 hours she will need to return to the emergency room for possible admission. Otherwise she will follow-up with her doctor. Disposition Clinical Impression: Abscess, Cellulitis Disposition: HOME SELF-CARE Condition: Good Instructions (If sedation given, give patient instructions): Cellulitis (ED), Abscess (ED) Additional Instructions: Restart new antibiotics as directed. Apply warm compresses. Follow-up with your doctor. Return to the emergency room for any worsening symptoms such as redness continues to spread after 24 hours. Prescriptions: Sulfamethox-Tmp 800-160Mg [Bactrim DS 800-160 mg] 1 tab PO Q12HR #20 tab Cephalexin [Keflex] 500 mg PO Q6HR 10 Days #40 cap Is patient prescribed a controlled substance at d/c from ED?: No Referrals: Dayne Mora DO [Primary Care Provider] - 1-2 days Time of Disposition: 10:30
[2021-01-16 10:43] VITALS: BP 128/88; PULSE 77; TEMP 98.2
== END 2021-01-16 10:40 | disposition home or self-care (01) ==
LOC: EC 09:02
DX: L02.416 Cutaneous abscess of left lower limb (principal); L03.116 Cellulitis of left lower limb; Z79.1 Long term (current) use of non-steroidal anti-inflammatories (NSAID)
CPT/HCPCS: 87070; 87205; 10060; 99283; 96372; J2001; J0696; 87077; 87186

== ENCOUNTER 2021-01-17 13:13 | Emergency (ER) | payer OTHER ==
[2021-01-17 13:29] VITALS: BP 119/71; PULSE 89; RESP 18; TEMP 98.3
[2021-01-17] MEDS ORDERED: diphenhydrAMINE 50 MG CAP PO STA (13:49)
--- NOTE | 2021-01-17 13:53 | ED ---
Allergic Reaction HPI - General Chief complaint: Allergic Reaction Stated complaint: revisit - med reaction Time Seen by Provider: 01/17/21 13:35 Source: patient, RN notes reviewed Mode of arrival: ambulatory Limitations: no limitations - History of Present Illness Initial Comments: 25-year-old female presents emergency Department chief complaint of facial tingling. Patient states that this started to morning. She believes is only start after taking her antiemetics. Patient had I&D of an abscess on left leg. Patient's wound culture shows evidence of MRSA. Patient denies any difficulty breathing or swallowing no other complaints. She states she started taking a warm these antibiotics. MD Complaint: allergic reaction - Related Data Home Medications Medication Instructions Recorded Confirmed Pnv No.95/Ferrous Fum/Folic AC 1 each PO DAILY 05/05/19 05/06/19 [ Multivitamin Tablet] Previous Rx's Medication Instructions Recorded Ibuprofen [Motrin] 600 mg PO Q6HR PRN #40 tab 05/06/19 Cephalexin [Keflex] 500 mg PO Q6HR 10 Days #40 cap 01/16/21 Sulfamethox-Tmp 800-160Mg [Bactrim 1 tab PO Q12HR #20 tab 01/16/21 DS 800-160 mg] Clindamycin HCl 300 mg PO Q6HR #40 cap 01/17/21 Allergies Allergy/AdvReac Type Severity Reaction Status Date / Time No Known Allergies Allergy Verified 01/17/21 13:26 Review of Systems ROS Statement: Those systems with pertinent positive or pertinent negative responses have been documented in the HPI. ROS Other: All systems not noted in ROS Statement are negative. Past Medical History Past Medical History: No Reported History Additional Past Medical History / Comment(s): hypoglycemic History of Any Multi-Drug Resistant Organisms: C-DIFF Date of last positivie culture/infection: 08/24/17 MDRO Source:: stool Past Surgical History: No Surgical Hx Reported Additional Past Surgical History / Comment(s): LEAP procedure 2015, D&C 2019 Past Anesthesia/Blood Transfusion Reactions: No Reported Reaction Past Psychological History: Anxiety, Depression Smoking Status: Never smoker Past Alcohol Use History: Rare Past Drug Use History: None Reported - Past Family History Brother(s) Family Medical History: Diabetes Mellitus General Exam Limitations: no limitations General appearance: alert, in no apparent distress Head exam: Present: atraumatic, normocephalic, normal inspection Eye exam: Present: normal appearance, PERRL, EOMI. Absent: scleral icterus, conjunctival injection, periorbital swelling Respiratory exam: Present: normal lung sounds bilaterally. Absent: respiratory distress, wheezes, rales, rhonchi, stridor Cardiovascular Exam: Present: regular rate, normal rhythm, normal heart sounds. Absent: systolic murmur, diastolic murmur, rubs, gallop, clicks Course Vital Signs 01/17/21 13:26 Temperature 98.3 F Pulse Rate 89 Respiratory 18 Rate Blood Pressure 119/71 O2 Sat by Pulse 100 Oximetry Medical Decision Making - Medical Decision Making Patient's culture shows MRSA. Patient will discontinue Keflex. I do not see any severe reaction she'll continue Bactrim if symptoms persist she'll discontinue start clindamycin. Disposition Clinical Impression: Abscess, Allergic reaction to drug Disposition: HOME SELF-CARE Condition: Stable Instructions (If sedation given, give patient instructions): Antibiotic Medication Allergy (ED) Additional Instructions: Please return to the Emergency Department if symptoms worsen or any other concerns. Prescriptions: Clindamycin HCl 300 mg PO Q6HR #40 cap Is patient prescribed a controlled substance at d/c from ED?: No Referrals: Dayne Mora DO [Primary Care Provider] - 1-2 days Time of Disposition: 13:52
== END 2021-01-17 14:05 | disposition home or self-care (01) ==
LOC: EC 13:13
DX: L02.416 Cutaneous abscess of left lower limb (principal); R20.2 Paresthesia of skin; T36.95XA Adverse effect of unspecified systemic antibiotic, initial encounter

== ENCOUNTER → 2021-05-01 | Outpatient (CLI) | payer OTHER ==
--- NOTE | 2021-05-01 15:01 | MR ---
EXAMINATION TYPE: MR brain and iac wo/w con DATE OF EXAM: 05/01/2021 COMPARISON: NONE HISTORY: 25-year-old female Asymmetric hearing loss, dizziness, tinnitus. TECHNIQUE: Multiplanar, multisequence images of the brain and brainstem were acquired before and aft er administration of 7.5 mL IV Gadavist. Diffusion weighted imaging was performed. Additional coned- down sequences through the internal auditory canals and posterior cranial fossa before and after IV c ontrast administration. FINDINGS: Diffusion weighted images demonstrate no evidence of an acute ischemic lesion in the brain. No T2/FLAIR weighted white matter signal abnormality. Midline structures demonstrate possible tiny 2 mm cyst within the right lateral aspect of the pituita ry gland, axial series 501 image 11. There is otherwise normal morphology. There is 3 mm of right-ivana ed cerebellar tonsillar ectopia noted. Otherwise, the craniocervical junction is normal. Normal brain volume. No hydrocephalus. Dominant left vertebral artery. There is no evidence of an acute intracranial hemorrhage, infarct, mass, mass-effect or an extra-axia l fluid collection. There is no cerebellopontine angle mass. The right AICA forms a loop partially entering the right internal auditory canal. The internal audit ory canals are otherwise symmetric. Brainstem and skull base abnormalities are not seen. Post contrast images demonstrate no evidence of pathologic enhancement in the posterior cranial johnny a or the internal auditory canals. Dural venous sinuses are patent. There is no abnormal enhancement of the labyrinths. Paranasal sinuses are clear. The globes appear symmetric. IMPRESSION: 1. No acute intracranial abnormality seen. 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 2. Tiny T2 bright lesion within the right side of the pituitary gland could represent a tiny Rathke's cleft cyst or tiny pituitary microadenoma. Consider 6 month follow-up pituitary MRI to reassess. 3. 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 Further c linical correlation recommended as to the clinical significance of this finding. Otherwise, no specif ic abnormality on acoustic MRI.
== END | disposition home or self-care (01) ==
LOC: RADMRIMAIN 10:33
PROVIDERS: ATTEND Otolaryngology
DX: H91.90 Unspecified hearing loss, unspecified ear (principal); R42 Dizziness and giddiness; H93.19 Tinnitus, unspecified ear
CPT/HCPCS: 70553; A9585

== ENCOUNTER → 2024-02-07 | Outpatient (CLI) | payer BC ==
[2024-02-07 12:32] LABS: Basophils # (A) 0.05 X 10*3/uL (0.00-0.10); Basophils % (A) 1.1 %; Eosinophils # (A) 0.04 X 10*3/uL (0.04-0.35); Eosinophils % (A) 0.9 %; HCT 43.5 % (37.2-46.3); HGB 14.6 g/dL (12.0-15.0); Lymphocytes # (A) 1.29 X 10*3/uL (0.90-5.00); Lymphocytes % (A) 29.3 %; MCH 30.8 pg (27.0-32.0); MCHC 33.6 g/dL (32.0-37.0); MCV 91.8 FL (80.0-97.0); Mean Platelet Volume 10.4 FL (9.5-12.2); Monocytes # (A) 0.33 X 10*3/uL (0.20-1.00); Monocytes % (A) 7.5 %; NRBC Per 100 WBC 0 X 10*3/uL (0.00-0.01); Neutrophils # (A) 2.69 X 10*3/uL (1.80-7.70); Platelet Count 295 X 10*3/uL (140-440); RBC 4.74 X 10*6/uL (4.10-5.20); RDW 11.7 % (11.5-14.5); WBC 4.41 X 10*3/uL (4.50-10.00)
[2024-02-07 13:02] LABS: Chol/HDL Ratio 3.16 Ratio; VLDL Calculation 16.64 mg/dL (5.00-40.00)
[2024-02-07 13:03] LABS: ALT 26 U/L (8-44); AST 22 U/L (13-35); Albumin 4.3 g/dL (3.8-4.9); Albumin/Globulin Ratio 1.65 Ratio (1.60-3.17); Alkaline Phosphatase 66 U/L (41-126); BUN/Creat Ratio 12.44 Ratio (12.00-20.00); Blood Urea Nitrogen 11.2 mg/dL (9.0-27.0); Calcium 9.4 mg/dL (8.7-10.3); Carbon Dioxide 24.3 mmol/L (21.6-31.8); Chloride 106 mmol/L (96-109); Globulin 2.6 g/dL (1.6-3.3); Glucose 91 mg/dL (70-110); LDL Cholesterol,Calculated 91.4 mg/dL (0.0-131.0); Potassium 4.7 mmol/L (3.5-5.5); Sodium 140 mmol/L (135-145); Total Bilirubin 0.5 mg/dL (0.3-1.2); Total Protein 6.9 g/dL (6.2-8.2)
== END | disposition home or self-care (01) ==
LOC: LABWHC1 08:12
PROVIDERS: ATTEND Family Medicine
DX: Z00.00 Encounter for general adult medical examination without abnormal findings (principal); Z13.29 Encounter for screening for other suspected endocrine disorder; Z13.220 Encounter for screening for lipoid disorders; Z13.228 Encounter for screening for other metabolic disorders; Z79.899 Other long term (current) drug therapy
CPT/HCPCS: 36415; 80053; 80061; 84443; 85025

== ENCOUNTER → 2024-05-20 | Outpatient (CLI) | payer BC ==
--- NOTE | 2024-05-20 20:40 | MR ---
EXAMINATION TYPE: MR brain wo/w con DATE OF EXAM: 05/20/2024 8:25 PM COMPARISON: 05/01/2021. CLINICAL INDICATION: Female, 28 years old with history of H81.02, R94.02; PHH, Spot on brain from [place] or scan, recheck TECHNIQUE: Multi planar, multi sequence imaging was performed through the brain including: T1, T2, In version recovery, susceptibility weighted imaging and gradient echo imaging and Diffusion weighted im aging. The patient was then given intravenous contrast and multi planar, T1 fat-saturation images wer e obtained. IV Contrast: 8.5 mL Gadobutrol FINDINGS: The perry-white junctions, ventricular system, basal cisterns appear unremarkable. Diffusion-weighted imaging shows no evidence of restricted diffusion to suggest acute/subacute infarct. Intracranial ar terial flow voids are maintained. Midline structures show no abnormality. The susceptibility weighted images do not reveal any evidence for micro-hemorrhage. After administration of gadolinium, no abnor mal intra-axial enhancement is seen. The bone marrow signal is within normal limits. Special sequences were not performed through the pituitary gland however there is a nonenhancing 2 mm lesion in the right posterior aspect possibly representing a cyst versus small pituitary adenoma. Specialized sequences were not performed to evaluate the internal auditory canals. There remains type I vascular loop on the right internal auditory canal. Special sequences of the pituitary gland were also now performed. 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 Visualized orbits: Orbital contents are intact. IMPRESSION: 1. No evidence of intracranial mass, acute/subacute infarct, or abnormal enhancement. 2. Suspicious sequences are not performed of the pituitary gland. Tiny nonenhancing lesion is seen in the pituitary gland on the right which is not enhanced compared to the rest of the gland. Finding co uld represent small pituitary adenoma that stable versus Rathke cleft cyst. 3. Specialized sequences were not performed to evaluate the internal auditory canals. There remains t ype I vascular loop on the right internal auditory canal. 4. 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
== END | disposition home or self-care (01) ==
LOC: RADMRIMAIN 20:00
PROVIDERS: ATTEND Family Medicine
DX: H81.02 Meniere's disease, left ear (principal); R94.02 Abnormal brain scan; G93.5 Compression of brain; Q14.2 Congenital malformation of optic disc
CPT/HCPCS: 70553; A9585